=== PATIENT | male | born 1955 | race Two or more races ===

== ENCOUNTER 2018-01-12 18:27 | Emergency (ER) | payer MEDICAID ==
[~2018-01-12] VITALS: Ht 177.8 cm; Wt 87.1 kg
[2018-01-12] MEDS ORDERED: ROBAXIN500 MG PO (18:41)
[2018-01-12] MEDS ORDERED: SERTRALINE HCL25 MG ORAL (18:41)
[2018-01-12] MEDS ORDERED: TRAZODONE HCL150 MG ORAL (18:41)
[2018-01-12] MEDS ORDERED: GABAPENTIN300 MG ORAL (18:41)
[2018-01-12] MEDS ORDERED: RISPERDAL1 MG PO (18:41)
[2018-01-12] MEDS ORDERED: Methocarbamol 750mg tab ORAL ONE (19:30)
--- NOTE | 2018-01-12 19:53 | Emergency Room Report ---
History of Present Illness General Chief Complaint: Skin Rash/Abscess Source: Patient Present Illness HPI 62 YO Male presents to the ED c/o irritated burning/itching rash to the dorsum of the bilateral hands x2 days. pt. reports his symptoms began with using gloves at work regularly. pt. also reports swelling and pain in the base of the left thumb, denies appreciable trauma. denies paresthesias. reports pain exacerbated with making a fist/ gripping steering wheel. pt. denies erythema, recent open wounds. pt. denies hx of pain in this location in the past. Pt. denies fevers, chills or swollen tender lymph nodes. Denies lesions/rashes elsewhere on the body. Denies new medications or body washes or creams. Denies swelling of the lips, tongue , throat or airway. Denies wheezing, or shortness of breath. Denies recent travel, recent illness or ill contacts. denies blisters, oral lesions, or sloughing of the skin. pt. reports hx of chronic knee pain as well that has been somewhat exacerbated lately. Allergies: Coded Allergies: No Known Allergies (Unverified , 01/12/18) Patient History Past Medical History: see triage record Past Surgical History: none Pertinent Family History: none Reviewed Nursing Documentation: PMH: Agreed; PSxH: Agreed Nursing Documentation-PMH Past Medical History: No History, Except For Hx Cardiac Problems: Yes - CHF, high cholesterol Hx Hypertension: Yes Hx Asthma: Yes Hx COPD: Yes Review of Systems All Other Systems: negative except mentioned in HPI Physical Exam Vital Signs Date Time Temp Pulse Resp B/P (MAP) Pulse Ox O2 Delivery O2 Flow Rate FiO2 01/12/18 18:32 98.2 71 18 150/92 97 Room Air 98.2 Sp02 EP Interpretation: reviewed, normal General Appearance: no apparent distress, alert, GCS 15, non-toxic Head: normocephalic, atraumatic Eyes: bilateral eye normal inspection, bilateral eye PERRL ENT: hearing grossly normal, normal pharynx, no angioedema, normal voice, uvula midline, other - no swelling of the lips or tongue Neck: full range of motion, other - no stridor Respiratory: lungs clear, normal breath sounds, speaking full sentences Cardiovascular #1: regular rate, rhythm, no edema, normal capillary refill Musculoskeletal: back normal, gait/station normal, normal range of motion, other - swollen irregular knuckles to the hands bilaterally, tender - TTP to the base of the left thumb Neurologic: alert, oriented x3, responsive, motor strength/tone normal, sensory intact, normal gait, speech normal, grossly normal Psychiatric: judgement/insight normal Skin: normal color, warm/dry, well hydrated, rash - erythematous plaques on the dorsum of the bilateral hands, no blisters or vesicles, no increased warmth or d/c noted. Medical Decision Making PA Attestation Dr. De Los Santos is my supervising physician whom pt. management has been discussed with. Diagnostic Impression: Primary Impression: Rash and other nonspecific skin eruption Additional Impressions: Thumb pain Qualified Codes: M79.645 - Pain in left finger(s) Knee pain Qualified Codes: M25.562 - Pain in left knee ER Course 62 YO Male presents to the ED c/o irritated burning/itching rash to the dorsum of the bilateral hands x2 days. pt. reports his symptoms began with using gloves at work regularly. pt. also reports swelling and pain in the base of the left thumb, denies appreciable trauma. denies paresthesias. reports pain exacerbated with making a fist/ gripping steering wheel. pt. denies erythema, recent open wounds. pt. denies hx of pain in this location in the past. Pt. denies fevers, chills or swollen tender lymph nodes. Denies lesions/rashes elsewhere on the body. Denies new medications or body washes or creams. Denies swelling of the lips, tongue , throat or airway. Denies wheezing, or shortness of breath. Denies recent travel, recent illness or ill contacts. denies blisters, oral lesions, or sloughing of the skin. pt. reports hx of chronic knee pain as well that has been somewhat exacerbated lately. Ddx considered but are not limited to cellulitis, scabies, shingles, varicella, dermatitis, urticaria, eczema, tinea, viral exanthem, SJS, arthritis, septic joint, sprain. Vital signs: are WNL, pt. is afebrile H&PE are most consistent with dermatitis and possible sprain or arthritis. pt. does have swollen irregular knuckles to the hands bilaterally. ORDERS: -X-ray left hand: Unremarkable ED INTERVENTIONS: -Robaxin PO DISCHARGE: At this time pt. is stable for d/c to home. Will provide printed patient care instructions, and any necessary prescriptions. Care plan and follow up instructions have been discussed with the patient prior to discharge. Other X-Ray Diagnostic Results Other X-Ray Diagnostic Results : X-Ray ordered: Left hand # of Views/Limited Vs Complete: 3 View Indication: Pain EP Interpretation: Yes PA Xray: Interpretation reviewed, by supervising MD, and agrees with findings. Interpretation: no dislocation, no soft tissue swelling, no fractures Impression: No acute disease Electronically Signed by: Maryse Guerrier PA-C Last Vital Signs Date Time Temp Pulse Resp B/P (MAP) Pulse Ox O2 Delivery O2 Flow Rate FiO2 01/12/18 18:32 98.2 71 18 150/92 97 Room Air 98.2 Disposition: HOME, SELF-CARE Condition: Stable Scripts Triamcinolone Acet (Triamcinolone Acetonide) 15 Gm Cream..g. 1 APPLIC TP BID, #15 GM Prov: Maryse Guerrier 01/12/18 Ibuprofen* (MOTRIN*) 600 Mg Tablet 600 MG ORAL THREE TIMES A DAY, #20 TAB 0 Refills Prov: Maryse Guerrier 01/12/18 Methocarbamol* (ROBAXIN-750*) 750 Mg Tablet 750 MG PO TID, #21 TAB 0 Refills Prov: Maryse Guerrier 01/12/18 Patient Instructions: Joint Pain, [id number], Rash Additional Instructions: Take medications as directed. Follow up with a Primary Care Provider in 3-5 days, even if your symptoms have resolved. --Please review list of primary care clinics, if you do not already have a primary care provider Return sooner to ED if new symptoms occur, or current symptoms become worse. Do not drink alcohol, drive, or operate heavy machinery while taking Robaxin as this may cause drowsiness. - Please note that this Emergency Department Report was dictated using [employer] technology software, occasionally this can lead to erroneous entry secondary to interpretation by the dictation equipment. Maryse Guerrier Jan 12, 2018 19:53
[2018-01-12] MEDS ORDERED: IBUPROFEN600 MG ORAL (19:54)
[2018-01-12] MEDS ORDERED: KENALOG 0.5% CR15 GM TP (19:54)
[2018-01-12] MEDS ORDERED: ROBAXIN-750750 MG PO (19:54)
[2018-01-12 20:15] VITALS: BP 142/79
--- NOTE | 2018-01-13 08:52 | Diagnostic Imaging Report ---
Indication: Pain Technique: 3 views left hand Comparison: none Findings: There are old healed fracture deformities of the distal radius and ulna. There are triangular fibrocartilage calcifications. No definite acute fractures. No dislocations. The joint spaces are preserved. Impression: No acute process
== END 2018-01-12 20:15 | disposition home or self-care (01) ==
LOC: EMR 18:58
DX: R21 Rash and other nonspecific skin eruption (principal); M79.645 Pain in left finger(s); M25.562 Pain in left knee; I50.9 Heart failure, unspecified; E78.00 Pure hypercholesterolemia, unspecified; I10 Essential (primary) hypertension; J44.9 Chronic obstructive pulmonary disease, unspecified; F17.200 Nicotine dependence, unspecified, uncomplicated
CPT/HCPCS: 99283